=== PATIENT | female | born 1965 | race Caucasian/White ===

== ENCOUNTER 2018-03-18 00:37 | Inpatient (IN) | payer OTHER ==
[~2018-03-18] VITALS: Ht 167.6 cm; Wt 89.8 kg
[2018-03-18] VITALS (28 sets, daily range): BP systolic 95–194; BP diastolic 58–122
[~2018-03-18 00:37] MED LIST: ALPRAZOLAM 0.0.25 MG PO; CELEXA40 MG PO; FAMOTIDINE20 MG PO; GEODON60 MG PO; IBUPROFEN 800800 M1 PO; PERCOCET 5-3251 EACH PO
[2018-03-18 08:06] LABS: HEMATOCRIT 39.6 % (37.0-47.0); HEMOGLOBIN 13.1 gm/dL (12.0-15.0); MCH 29.8 pg (26.0-34.0); MCHC 33.1 g/dL (28.0-37.0); MCV 90.1 fL (80.0-100.0); RBC 4.39 mil/uL (4.20-5.00); RDW 13.4 % (10.5-14.5); WBC 12.1 thou/uL (4.0-11.0)
[2018-03-18 08:14] LABS: CALCIUM 8.8 mg/dL (8.5-10.1); POTASSIUM 4.3 mmol/L (3.5-5.1)
[2018-03-19] VITALS (26 sets, daily range): BP systolic 129–193; BP diastolic 73–120
[2018-03-19] MEDS ORDERED: BUSPIRONE HCL5 MG PO (16:21)
[2018-03-19] MEDS ORDERED: NORVASC10 MG PO (16:25)
[2018-03-20] VITALS (18 sets, daily range): BP systolic 115–153; BP diastolic 64–102
== END 2018-03-20 18:55 | DRG 918 ==
LOC: ICU 00:37
PROVIDERS: Nurse Practitioner Family
DX: T43.592A Poisoning by other antipsychotics and neuroleptics, intentional self-harm, initial encounter (principal); F31.9 Bipolar disorder, unspecified; T42.4X2A Poisoning by benzodiazepines, intentional self-harm, initial encounter; F41.9 Anxiety disorder, unspecified; J45.909 Unspecified asthma, uncomplicated; F10.120 Alcohol abuse with intoxication, uncomplicated; G89.4 Chronic pain syndrome; I10 Essential (primary) hypertension; Z87.891 Personal history of nicotine dependence; Z91.5 Personal history of self-harm; Z98.891 History of uterine scar from previous surgery; Z79.899 Other long term (current) drug therapy; Z88.8 Allergy status to other drugs, medicaments and biological substances; Z82.49 Family history of ischemic heart disease and other diseases of the circulatory system; Z82.3 Family history of stroke; Y92.89 Other specified places as the place of occurrence of the external cause
CPT/HCPCS: 10078